=== PATIENT | female | born 1980 | race Caucasian/White ===

== ENCOUNTER 2022-07-07 12:54 | Outpatient (CLI) | payer OTHER, SELFPAY ==
[2022-07-07 21:50] LABS: Cholesterol* 195 mg/dL (90-199); HDL Cholesterol* 56 mg/dL (>=50); LDL Cholesterol Calculated 102 mg/dL (<100); Triglycerides* 183 mg/dL (40-149)
== END 2022-07-07 12:55 | disposition home or self-care (01) ==
PROVIDERS: Visit Provider Obstetrics & Gynecology
DX: Z01.419 Encounter for gynecological examination (general) (routine) without abnormal findings (principal); N92.1 Excessive and frequent menstruation with irregular cycle; Z13.6 Encounter for screening for cardiovascular disorders
CPT/HCPCS: 80061; 84443

== ENCOUNTER 2024-02-06 10:10 | Outpatient (REF) | payer OTHER, SELFPAY ==
[2024-02-06 10:46] LABS: Basophils Absolute Auto 0.05 K/uL (0.00-0.30); Basophils Percent Auto 0.8 % (0.0-3.0); Eosinophils Absolute Auto 0.27 K/uL (0.00-0.50); Eosinophils Percent Auto 4.1 % (0.0-7.0); Hematocrit 38.3 % (33.0-51.0); Hemoglobin* 11.8 gm/dL (12.0-16.0); Immature Granulocytes Abs Auto 0.02 K/uL (0.00-0.30); Immature Granulocytes Pct Auto 0.3 %; Lymphocytes Absolute Auto 1.62 K/uL (0.90-2.90); Lymphocytes Percent Auto 24.4 % (20-44); Mean Corpuscular HGB Conc 31 gm/dL (32-36); Mean Corpuscular Hemoglobin 27 pg (26-34); Mean Corpuscular Volume 87 fL (80-100); Monocytes Percent Auto 5.1 % (0.0-11.0); Neutrophils Absolute Auto 4.33 K/uL (1.7-7.0); Neutrophils Percent Auto 65.3 % (42.0-72.0); Platelet Count* 264 K/uL (140-440); RDW Coefficient of Variation % 14.1 % (11.5-15.5); Red Blood Count 4.42 m/uL (4.00-5.20); White Blood Count* 6.63 K/uL (4.50-11.00)
[2024-02-06 10:54] LABS: Slide Review Reflex No
[2024-02-06 10:56] LABS: Albumin* 4.1 g/dL (3.3-5.0); Chloride* 108 mmol/L (96-114); Potassium* 4.3 mmol/L (3.6-5.1); Sodium* 140 mmol/L (135-149)
[2024-02-06 10:58] LABS: Creatinine* 0.7 mg/dL (0.5-1.5); Estimated Glomerular Filt Rate 111 ml/min
[2024-02-06 10:59] LABS: Alanine Aminotransferase* 14 U/L (4-35); Alkaline Phosphatase* 71 U/L (40-150); Anion Gap 9 mEq/L (7-15); Aspartate Amino Transferase* 19 U/L (12-35); Bilirubin Total* 0.3 mg/dL (0.1-1.5); Blood Urea Nitrogen* 16 mg/dL (5-24); Calcium* 9.1 mg/dL (8.4-10.6); Carbon Dioxide* 23 mmol/L (20-32); Glucose* 109 mg/dL (60-115); Total Protein* 6.6 g/dL (6.0-8.3)
[2024-02-06 11:27] LABS: Hepatitis B Surface Antigen* Negative (Negative)
[2024-02-06 11:44] LABS: Hepatitis C Virus Antibody* Negative (Negative)
[2024-02-06 11:48] LABS: Hepatitis B Surface Antibody* Positive (Negative)
[2024-02-07 13:32] LABS: Hepatitis B Core Antibody, IgM Negative (Negative)
== END 2024-02-06 10:11 | disposition home or self-care (01) ==
LOC: NPINS 10:10
PROVIDERS: Visit Provider Dermatology
DX: L40.59 Other psoriatic arthropathy (principal); L40.0 Psoriasis vulgaris; Z79.899 Other long term (current) drug therapy
CPT/HCPCS: 80053; 85025; 86480; 86705; 86706; 86803; 87340; 87522

== ENCOUNTER 2024-11-15 14:22 | Outpatient (CLI) | payer OTHER, SELFPAY ==
[2024-11-17 20:25] LABS: HPV Source Cervical; HPV, High Risk by TMA Not Detected
== END 2024-11-15 14:23 | disposition home or self-care (01) ==
PROVIDERS: Visit Provider Obstetrics & Gynecology
DX: Z12.4 Encounter for screening for malignant neoplasm of cervix (principal); Z11.51 Encounter for screening for human papillomavirus (HPV)
CPT/HCPCS: 87624; 87625; 88141; 88142

== ENCOUNTER 2025-01-18 08:51 | Outpatient (CLI) | payer OTHER, SELFPAY | END 2025-01-18 08:52 | disposition home or self-care (01) | LOC: NPINS 08:51 | PROVIDERS: Visit Provider Dermatology | DX: Z79.899 Other long term (current) drug therapy (principal) | CPT/HCPCS: 86480 ==

== ENCOUNTER 2025-02-25 15:02 | Outpatient (CLI) | payer OTHER, SELFPAY ==
--- NOTE | 2025-02-25 15:20 | CRLHL7_ITS ---
For Patients: As a result of the Century Cures Act, medical imaging exams and procedure reports are released immediately into your electronic medical record. You may view this report before your referring provider. If you have questions, please contact your health care provider. INDICATION: BILATERAL SCREEING MAMMOGRAM, ASYMPTOMATIC 44 Y/O FEMALE COMPARISON: 11/10/2022 TECHNIQUE: Digital mammogram in CC and MLO projections including computer-aided detection (CAD) and tomosynthesis. BREAST COMPOSITION: There are scattered areas of fibroglandular density. FINDINGS: No suspicious findings. ASSESSMENT: BI-RADS 1 Negative RECOMMENDATION: Annual screening mammogram. A lay language report of this examination will be provided to the patient. Dictated by: Alex Nguyen MD @ 02/26/2025 09:05:23 (Electronically Signed)
== END 2025-02-25 15:03 | disposition home or self-care (01) ==
LOC: MAMMO 15:03
PROVIDERS: Visit Provider Obstetrics & Gynecology
DX: Z12.31 Encounter for screening mammogram for malignant neoplasm of breast (principal)
CPT/HCPCS: 77063; 77067